=== PATIENT | male | born 1965 | race Caucasian/White ===

== ENCOUNTER 2017-06-24 14:01 | Emergency (ER) | payer BC ==
[~2017-06-24] VITALS: Ht 177.8 cm; Wt 111.1 kg
[~2017-06-24 14:01] MED LIST: BUTRANS20 MCG/HR TD; DARVOCET N 1001 TAB PO; DIOVAN HCT 12.51 TAB PO; OXYCODONE15 MG PO; SEPTRA DS 800 M1 TAB PO; VITAMIN B121000 MC2 PO; [UNRECOGNIZED DRUG - OTHER] PO
[2017-06-24] MEDS ORDERED: VALSARTAN320 MG PO (14:17)
[2017-06-24] MEDS ORDERED: LABETALOL HCL200 MG PO (14:18)
[2017-06-24] MEDS ORDERED: CLOBETASOL PROP15 G1 T (14:18)
[2017-06-24] MEDS ORDERED: LORAZEPAM0.5 MG PO (14:18)
[2017-06-24] MEDS ORDERED: OMEPRAZOLE D/R20 MG PO (14:18)
[2017-06-24] MEDS ORDERED: EFFIENT10 M1 PO (14:19)
[2017-06-24] MEDS ORDERED: ROSUVASTATIN CA40 MG PO (14:19)
[2017-06-24] MEDS ORDERED: CEPHALEXIN500 M1 PO (15:05)
== END 2017-06-24 15:13 | disposition home or self-care (01) ==
LOC: ED 14:01
DX: S61.211A Laceration without foreign body of left index finger without damage to nail, initial encounter (principal); Z98.890 Other specified postprocedural states; Z90.89 Acquired absence of other organs; Z79.899 Other long term (current) drug therapy; W31.89XA Contact with other specified machinery, initial encounter; Y93.89 Activity, other specified; Y92.89 Other specified places as the place of occurrence of the external cause; Y99.9 Unspecified external cause status

== ENCOUNTER → 2018-10-17 | Outpatient (CLI) | payer BC ==
[~2018-10-17] MED LIST changes: +CEPHALEXIN500 M1 PO; +CLOBETASOL PROP15 G1 T; +EFFIENT10 M1 PO; +LABETALOL HCL200 MG PO; +LORAZEPAM0.5 MG PO; +OMEPRAZOLE D/R20 MG PO; +ROSUVASTATIN CA40 MG PO; +VALSARTAN320 MG PO
== END | disposition home or self-care (01) ==
LOC: ORTHO 00:07
DX: M79.672 Pain in left foot (principal)

== ENCOUNTER → 2022-06-01 | Outpatient (CLI) | payer BC | END | disposition home or self-care (01) | LOC: CARD 13:26 | PROVIDERS: ATTEND Internal Medicine Cardiovascular Disease | DX: I51.7 Cardiomegaly (principal); R06.09 Other forms of dyspnea ==